=== PATIENT | male | born 1955 | race Caucasian/White ===

== ENCOUNTER 2017-07-21 07:25 | Day surgery (SDC) | payer MEDICARE, BC ==
[~2017-07-21 07:25] MED LIST: Midazolam 1 MG/ML 2 ML SDV ONE; Propofol 200 MG/20 ML SDV ONE; fentaNYL 100 MCG/2 ML SDV ONE
[2017-07-21] MEDS ORDERED: Sodium Chloride 0.9% 1,000 ML IV SCH (08:00)
[2017-07-21 10:41] VITALS: BP 111/68
--- NOTE | 2017-07-24 09:47 | OR ---
DATE OF PROCEDURE: 07/21/2017 PROCEDURE: Colonoscopy. FINDINGS: Diverticulosis, mild. COMPLICATIONS: None. FILTER TIP INSPECTOR: None. ANESTHESIA: MAC. RISKS: Risks, benefits, alternatives, and limitations including, but not limited to infection, bleeding, and perforation were explained to the patient and they wished to proceed. PREOPERATIVE DIAGNOSIS: History of colon polyps. POSTOPERATIVE DIAGNOSIS: History of colon polyps. PROCEDURE IN DETAIL: The patient was placed in left lateral decubitus position. Digital rectal exam was performed without abnormality. The scope was introduced and advanced atraumatically to the ileocecal valve. The scope was brought back through the ascending, transverse, descending colons and retroflexed. The patient had diverticulosis, which would be described as mild and limited to sigmoid colon. No other abnormalities on retroflex. The patient tolerated the procedure well. Mulugeta Wilde MD /[id number]
== END 2017-07-21 10:41 | disposition home or self-care (01) ==
LOC: JP.SDS 07:25
PROVIDERS: ATTEND Surgery
DX: Z12.11 Encounter for screening for malignant neoplasm of colon (principal); K57.30 Diverticulosis of large intestine without perforation or abscess without bleeding; I10 Essential (primary) hypertension; Z86.010 Personal history of colon polyps
CPT/HCPCS: G0105; J2250; J2704; J3010

== ENCOUNTER 2022-07-02 16:14 | Inpatient (IN) | payer MEDICARE, BC ==
[2022-07-02] MEDS ORDERED: Sodium Chloride 0.9% 10 ML Syringe FLUSH PRN (17:18)
[2022-07-02] MEDS ORDERED: Albuterol/Ipratropium 3.0-0.5 MG/3 ML Neb Soln NEB ONE (17:33)
[2022-07-02] MEDS ORDERED: Ondansetron 4 MG/2 ML SDV IVPUSH ONE (17:52)
[2022-07-02] MEDS ORDERED: Iopamidol 755 Mg/ML 100 ML Bottle IV SCH (18:00)
[2022-07-02] MEDS ORDERED: Sodium Chloride 0.9% 75 ML IV SCH (18:00)
[2022-07-02 18:09] LABS: ESTIMATED GFR 54 mL/min (>60)
[2022-07-02 18:10] LABS: TROPONIN I HIGH SENSITIVITY 571.7 pg/mL (<=60.3)
[2022-07-02 18:25] LABS: CORONAVIRUS COVID-19 NAA NEGATIVE (NEGATIVE)
[2022-07-02] MEDS ORDERED: Heparin Sodium 5,000 Units/ML Vial IVPUSH ONE (19:19)
[2022-07-02] MEDS ORDERED: Heparin Sodium/D5W 25,000 UNITS/500 ML BAG IV SCH (19:30)
[2022-07-02] MEDS ORDERED: Ondansetron 4 MG/2 ML SDV IV PRN (21:27)
[2022-07-02] MEDS ORDERED: Melatonin 3 MG Tab PO PRN (21:27)
[2022-07-02] MEDS ORDERED: Albuterol 0.083% 2.5 MG/3 ML Neb Soln NEB PRN (21:27)
[2022-07-02] MEDS ORDERED: Acetaminophen 325 MG Tab PO PRN (21:27)
[2022-07-02] MEDS ORDERED: Magnesium Hydroxide 400 MG/5 ML Susp 30 ML Cup PO PRN (21:27)
[2022-07-02] MEDS ORDERED: Ondansetron 4 MG Tab.DIS PO PRN (21:27)
[2022-07-02] MEDS: Apixaban 5 MG Tab PO SCH (21:48)
[2022-07-03] MEDS: traMADol 50 MG Tab PO PRN ×2 (01:55→13:02)
[2022-07-03] MEDS: Pantoprazole 40 MG Tab.CR PO SCH (07:07)
[2022-07-03] MEDS ORDERED: Hydrochlorothiazide 25 MG Tab PO SCH (09:00)
[2022-07-03] MEDS ORDERED: Lisinopril 20 MG Tab PO SCH (09:00)
[2022-07-03] MEDS ORDERED: Acetaminophen 500 MG Tab PO SCH (09:00)
[2022-07-03] MEDS ORDERED: INDOMETHACIN 50 MG PO SCH (09:00)
[2022-07-03] MEDS ORDERED: amLODIPine 5 MG Tab PO SCH (09:00)
[2022-07-03] MEDS: Apixaban 5 MG Tab PO SCH ×2 (09:01→20:03)
[2022-07-03] MEDS: Sennosides 8.6 MG Tab PO SCH ×2 (09:03→20:03)
[2022-07-03] MEDS: Polyethylene Glycol 3350 Powder 17 GM Packet PO SCH (09:03)
[2022-07-03] MEDS ORDERED: INDOMETHACIN 50 MG PO PRN (10:54)
[2022-07-03] MEDS: Allopurinol 100 MG Tab PO SCH (11:24)
[2022-07-03] MEDS ORDERED: atorvaSTATin 20 MG Tab PO SCH (21:00)
[2022-07-04] MEDS: Pantoprazole 40 MG Tab.CR PO SCH (07:35)
[2022-07-04] MEDS: Apixaban 5 MG Tab PO SCH (08:22)
[2022-07-04] MEDS: Sennosides 8.6 MG Tab PO SCH (08:23)
[2022-07-04] MEDS: Polyethylene Glycol 3350 Powder 17 GM Packet PO SCH (08:23)
[2022-07-04] MEDS: Allopurinol 100 MG Tab PO SCH (08:24)
[2022-07-04] MEDS ORDERED: Hydrochlorothiazide 12.5 MG Cap PO SCH (09:00)
[2022-07-04] MEDS ORDERED: Hydrochlorothiazide 25 MG Tab PO SCH (09:00)
[2022-07-04] MEDS ORDERED: Lisinopril 20 MG Tab PO SCH (09:00)
[2022-07-04 11:10] VITALS: BP 144/61; PULSE 91
== END 2022-07-04 15:00 | disposition home or self-care (01) | DRG 175 ==
LOC: JP.ED 16:14 → JP.MS 20:58 → OBSVTOIN 07-03 09:51
PROVIDERS: ADMIT Hospitalist; ATTEND Internal Medicine
DX: I26.99 Other pulmonary embolism without acute cor pulmonale (principal); R09.02 Hypoxemia; J96.21 Acute and chronic respiratory failure with hypoxia; J96.22 Acute and chronic respiratory failure with hypercapnia; Z68.41 Body mass index [BMI] 40.0-44.9, adult; E78.00 Pure hypercholesterolemia, unspecified; Z96.651 Presence of right artificial knee joint; M10.9 Gout, unspecified; Z66 Do not resuscitate; Z20.822 Contact with and (suspected) exposure to COVID-19; E66.01 Morbid (severe) obesity due to excess calories; G47.30 Sleep apnea, unspecified; E78.5 Hyperlipidemia, unspecified; I10 Essential (primary) hypertension; Z86.010 Personal history of colon polyps; Z79.82 Long term (current) use of aspirin; Z79.899 Other long term (current) drug therapy; Z88.8 Allergy status to other drugs, medicaments and biological substances; Z98.1 Arthrodesis status; Z98.890 Other specified postprocedural states; Z87.891 Personal history of nicotine dependence
CPT/HCPCS: 0241U; 36415; 71275; 80048; 80053; 82803; 82947; 83690; 83880; 84484; 85025; 85027; 93005; 93010; 94640; 97110; 97162; 97530; 99222; 99232; 99238; 99284; 96365; 96375; 96376; 99285-25; A9270-GY; J1644; J2405; J3490; J7620; Q9967

== ENCOUNTER 2023-04-29 11:12 | Emergency (ER) | payer MEDICARE, BC ==
[2023-04-29 11:42] VITALS: BP 139/88; PULSE 80
== END 2023-04-29 13:00 | disposition left against medical advice (07) ==
LOC: JP.ED 11:12
DX: Z53.21 Procedure and treatment not carried out due to patient leaving prior to being seen by health care provider (principal)

== ENCOUNTER 2023-06-01 08:02 | Day surgery (SDC) | payer MEDICARE, BC ==
[~2023-06-01 08:02] MED LIST changes: -Midazolam 1 MG/ML 2 ML SDV ONE
[2023-06-01 08:25] VITALS: BP 141/79; PULSE 76
[2023-06-01] MEDS ORDERED: Sodium Chloride 0.9% 1,000 ML IV SCH (08:45)
== END 2023-06-01 10:14 | disposition home or self-care (01) ==
LOC: JP.SDS 08:02
PROVIDERS: ATTEND Surgery
DX: K57.32 Diverticulitis of large intestine without perforation or abscess without bleeding (principal); Z53.8 Procedure and treatment not carried out for other reasons
CPT/HCPCS: J2704; J3010; J7030

== ENCOUNTER 2023-08-10 06:45 | Day surgery (SDC) | payer MEDICARE, BC ==
[2023-08-10] MEDS: Sodium Chloride 0.9% 1,000 ML IV SCH (07:14)
[2023-08-10] MEDS ORDERED: Propofol 200 MG/20 ML SDV ONE ×2 (07:15→08:28)
[2023-08-10] MEDS ORDERED: fentaNYL 50 MCG/ML SDV ONE (07:15)
[2023-08-10] MEDS ORDERED: Midazolam 1 MG/ML 2 ML SDV ONE (07:15)
[2023-08-10 09:27] VITALS: BP 145/82; PULSE 60
== END 2023-08-10 09:35 | disposition home or self-care (01) ==
LOC: JP.SDS 06:45
PROVIDERS: ATTEND Surgery
DX: Z12.11 Encounter for screening for malignant neoplasm of colon (principal); D12.2 Benign neoplasm of ascending colon; D12.3 Benign neoplasm of transverse colon; D12.4 Benign neoplasm of descending colon; K57.30 Diverticulosis of large intestine without perforation or abscess without bleeding; I10 Essential (primary) hypertension; E78.5 Hyperlipidemia, unspecified
CPT/HCPCS: 45385; 88305; J2250; J2704; J3010; J7030

== ENCOUNTER 2023-11-21 22:56 | Emergency (ER) | payer MEDICARE, BC ==
[2023-11-21 23:23] VITALS: BP 127/74
[2023-11-22 01:57] VITALS: PULSE 74
== END 2023-11-22 01:55 | disposition home or self-care (01) ==
LOC: JP.ED 22:56
DX: S42.401A Unspecified fracture of lower end of right humerus, initial encounter for closed fracture (principal); I10 Essential (primary) hypertension; E78.00 Pure hypercholesterolemia, unspecified; E66.9 Obesity, unspecified; Z87.891 Personal history of nicotine dependence; Z68.41 Body mass index [BMI] 40.0-44.9, adult; Z79.899 Other long term (current) drug therapy; Z88.6 Allergy status to analgesic agent; Z91.048 Other nonmedicinal substance allergy status; W19.XXXA Unspecified fall, initial encounter
CPT/HCPCS: 29105; 73080-26-RT; 73080-RT; 99283; 99283-25

== ENCOUNTER 2025-02-05 07:20 | Day surgery (SDC) | payer MEDICARE, BC ==
[2025-02-05] MEDS ORDERED: Propofol 200 MG/20 ML SDV ONE (07:57)
[2025-02-05] MEDS ORDERED: fentaNYL 50 MCG/ML SDV ONE (07:57)
[2025-02-05] MEDS ORDERED: Midazolam 1 MG/ML 2 ML SDV ONE (07:57)
[2025-02-05] MEDS: Lactated Ringers 1,000 ML IV SCH (08:08)
[2025-02-05 10:33] VITALS: BP 126/81; PULSE 60
== END 2025-02-05 10:35 | disposition home or self-care (01) ==
LOC: JP.SDS 07:20
PROVIDERS: ATTEND Surgery
DX: Z12.11 Encounter for screening for malignant neoplasm of colon (principal); K57.30 Diverticulosis of large intestine without perforation or abscess without bleeding; I10 Essential (primary) hypertension; E66.9 Obesity, unspecified; Z88.5 Allergy status to narcotic agent; Z91.09 Other allergy status, other than to drugs and biological substances; Z87.891 Personal history of nicotine dependence; Z79.899 Other long term (current) drug therapy; Z98.890 Other specified postprocedural states; Z86.0100 Personal history of colon polyps, unspecified
CPT/HCPCS: G0121; J2250; J2704; J3010; J7120